=== PATIENT | female | born 1940 | race Caucasian/White ===

== ENCOUNTER → 2021-01-24 18:31 | Outpatient (CLI) | payer MEDICARE | END | disposition home or self-care (01) | LOC: D.LABREF 18:31 | DX: T14.8XXA Other injury of unspecified body region, initial encounter (principal) ==

== ENCOUNTER → 2021-04-01 17:36 | Outpatient (CLI) | payer MEDICARE | END | disposition home or self-care (01) | LOC: D.LABREF 17:36 | PROVIDERS: ATTEND Family Medicine | DX: N39.0 Urinary tract infection, site not specified (principal) ==